=== PATIENT | female | born 1955 | race Caucasian/White ===

== ENCOUNTER 2016-10-26 05:28 | Emergency (ER) | payer OTHER ==
[2016-10-26 06:23] LABS: PTT 39.4 SEC (22.9-36.1); Prothrombin Time 16.1 SEC (12.0-14.7)
[2016-10-26 06:28] LABS: Mean Platelet Volume 7.5 fL (7.4-10.4); Red Blood Cell (RBC) Count 3.21 mill/uL (4.20-5.40); White Blood Cell (WBC) Count 3.6 thou/uL (4.8-10.8)
[2016-10-26 06:32] LABS: ALT (SGPT) 48 U/L (0-55); AST (SGOT) 78 U/L (5-34); Alkaline Phosphatase 138 U/L (40-150); Anion Gap 9 mmol/L (10-20); BUN (Urea Nitrogen) 15 mg/dL (9.8-20.1); Bilirubin, Total 1.1 mg/dL (0.2-1.2); Calc. Creatinine Clearance 0 mL/min (70-130); Calcium 8.6 mg/dL (7.8-10.44); Carbon Dioxide 23 mmol/L (23-31); Chloride 107 mmol/L (98-107); Estimated GFR-MDRD 56; Globulin 4.5 g/dL (2.4-3.5); Protein, Total 7.2 g/dL (5.8-8.1)
[2016-10-26 06:40] LABS: #Basophils 0.1 thou/uL (0.0-0.2); #Eosinphils 0.1 thou/uL (0.0-0.7); #Lymphocytes 0.9 thou/uL (1.20-3.40); #Monocytes 0.3 thou/uL (0.11-0.59); #Neutrophils 2.1 thou/uL (1.40-6.50); %Basophils 1.8 % (0.0-1.0); %Eosinophils 2.4 % (0.0-10.0); %Monocytes 9.6 % (0.0-10.0); Macrocytosis SLIGHT = 6-15 cells (100X) (0-5/hpf)
[2016-10-26] MEDS ORDERED: Iopamidol 370 76% 100 ML VIAL ONE (09:00)
[2016-10-26 09:20] LABS: Bilirubin Negative (Negative); Blood, Urine Moderate (Negative); Glucose, Urine (Dipstick) Negative (Negative); Ketone, Urine Negative (Negative); Nitrite Negative (Negative); Protein, Urine (Dipstick) Negative (Neg-Trace)
[2016-10-26 09:27] LABS: RBC/HPF 0-3 HPF (0-3)
[2016-10-26 09:28] LABS: Bacteria/HPF Rare-Few HPF (None Seen); Squamous Epithelial 0-3 HPF (0-3); WBC/HPF None Seen HPF (0-3)
--- NOTE | 2016-10-26 09:28 | ERRECORD ---
[facility] EMERGENCY RECORD HPI DIFFICULTY SWALLOWING (06:07 DHAM) CHIEF COMPLAINT: Patient presents for evaluation of difficulty swallowing, Patient presents for evaluation of hurts in neck and feels like something is obstructing her breathing. HISTORIAN: History provided by patient, Pt has had difficulty swallowing for the last [address] Levine from [place] in [place] 48 hours ago. She awoke feeling pain in her throat and like something was blocking her breathing. I have discussed the pt with Dr. Levine who did a laryngoscopy on the pt 48 hours ago. 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 He would like us to get a CT of the neck with IV contrast but with her hx of renal failure "a couple of times" I am concerned that her GFR will be too low. LOCATION: Symptoms are localized, most severe in the right side of throat, most severe to the up near thyroid cartilage. QUALITY: Pain is dull in nature, described as aching. SEVERITY: Current severity of pain rated as 8/10. TIME COURSE: Gradual onset of symptoms, 8, weeks ago, Symptoms are worsening, "My usual tramadol that I take for arthritis isn't helping this.". ASSOCIATED WITH: No associated chills, No associated cough, No associated drooling, Denies fever, Not associated with food bolus, No associated inability to open mouth, No associated inability to take oral fluids, No associated nasal discharge, No associated shortness of breath, No associated upper respiratory infection. EXACERBATED BY: Patient's condition exacerbated by deep breath or swallowing. ROS (06:20 DHAM) CONSTITUTIONAL: Historian denies chills, denies fever. EYES: Historian denies eye pain, denies eye redness, denies eye discharge. ENT: Historian reports dysphasia, reports dysphonia, denies otalgia, denies rhinorrhea, reports sore throat, denies snoring, reports stridor, reports voice changes. CARDIOVASCULAR: Historian denies chest pain, no radiation, Historian denies diaphoresis, denies dyspnea on exertion, denies palpitations. RESPIRATORY: Historian denies cough, denies shortness of breath, reports stridor. GI: Historian denies abdominal pain, denies constipation, denies diarrhea. h/o "liver failure and fluid retention". GENITOURINARY FEMALE: h/o renal "failure a couple of times". SKIN: Historian denies skin changes, denies skin lesions. &a-1R&a+25V*p+0X*m2089J*c202B*c15G*c2P*p-0X&a-25V&a+1R Name: Kallie Vogel : 1955 F61 MedRec: [id number] AcctNum: [id number] Prepared: Karlos Oct 28, 2016 20:02 by Interface Page 1 of 4 pMD [facility] EMERGENCY RECORD NEUROLOGIC: Historian denies focal weakness, denies mental status changes, denies paralysis, denies paresthesias. HEMO/LYMPHATIC: Historian denies abnormal blood clotting, denies easy bruising. PSYCHIATRIC: Historian reports alcohol abuse, reports drug abuse. "all that was a long time ago". PAST MEDICAL HISTORY (06:27 MVIL) MEDICAL HISTORY: Flu vaccine up to date, Tetanus immunization up to date, Pneumococcal vaccine up to date, Past medical history includes cardiac history, history of hypertension. FEMALE SURGICAL HISTORY: H/O THYROID REMOVAL; 3 C-SECTIONS. PSYCHIATRIC HISTORY: Notes: H/O DEPRESSION. SOCIAL HISTORY: Patient denies alcohol use, Patient denies drug use, Patient is a former tobacco user, smoked cigarettes, Patient quit smoking in the past year, Tobacco history notes: QUIT ON THURSDAY. H/ O 34 YRS. FAMILY HISTORY: No known family hisotry. KNOWN ALLERGIES NKA CURRENT MEDICATIONS traMADol: TABLET : Strength - 50 mg : ORAL Patient Dose: 1 tab(s) Oral 4 times a day. NEEDED. (05:47 CHOB) buPROPion HCl: TABLET, EXTENDED RELEASE : Strength - 150 mg : ORAL Patient Dose: 1 tab(s) Oral once a day. (05:48 CHOB) furosemide: TABLET : Strength - 20 mg : ORAL Patient Dose: 1 tab(s) Oral once a day. (05:49 CHOB) spironolactone: TABLET : Strength - 25 mg : ORAL Patient Dose: 1 tab(s) Oral once a day. (05:49 CHOB) lisinopril: TABLET : Strength - 2.5 mg : ORAL Patient Dose: 1 tab(s) Oral once a day. (05:50 CHOB) VITAL SIGNS VITAL SIGNS: BP: 115/85, Pulse: 98, Resp: 21, Temp: 97.7 (Oral), Pain: 8, O2 sat: 99 on Room Air, Time: 10/26/2016 05:37. (05:37 MVIL) BP: 135/83, Pulse: 95, Resp: 20, Temp: 98.3 (Oral), Pain: 8, O2 sat: 93 on Room Air, Time: 10/26/2016 07:11. (07:11 CTUR) BP: 119/86, Pulse: 92, Resp: 18, O2 sat: 95 on Room Air, Time: 10/26/2016 07:19. (07:19 CTUR) BP: 131/81, Pulse: 94, Resp: 18, Pain: Sleeping, O2 sat: 95 on Room Air, &a-1R&a+25V*p+0X*x2352K*c202B*c15G*c2P*p-0X&a-25V&a+1R Name: Kallie Vogel : 1955 F61 MedRec: [id number] AcctNum: [id number] Prepared: Karlos Oct 28, 2016 20:02 by Interface Page 2 of 4 pMD [facility] EMERGENCY RECORD Time: 10/26/2016 07:56. (07:56 CTUR) BP: 121/73, Pulse: 98, Resp: 20, Temp: 98.3 (Oral), Pain: 6, O2 sat: 97 on Room Air, Time: 10/26/2016 09:00. (09:00 CTUR) PHYSICAL EXAM (06:29 [facility]) CONSTITUTIONAL: Vital signs reviewed, Patient afebrile, Pulse normal, Blood pressure normal, Respiratory rate normal, Patient appears non toxic, Patient appears in pain, in moderate pain distress, Patient alert and oriented to person, place and time, Pt sleeping soundly on her left and right side without stridor. voice is raspy and this is unchanged over the last 2 months. also c/o right ear pain for the last 2 months. HEAD: Head exam included findings of head atraumatic, normocephalic. EYES: Eye exam included findings of eyelids normal to inspection, Pupils equally round and reactive to light, Extraocular muscles intact, Conjunctiva normal, Sclera normal, Eye exam included findings of anterior chamber clear. ENT: Ear exam included findings of, left external ear normal, right external ear normal, tympanic membrane normal on the left, tympanic membrane perforated on the right, hearing normal on the left, hearing normal on the right, Nose exam normal, Pharynx exam normal, Uvula exam normal, Tonsil exam normal, not enlarged, no exudates, Mouth exam normal, mucous membranes moist, no drooling, no lesions, no lacerations, no tongue elevation, Teeth with, dentures, swallows secretions normally. NECK: Neck exam included findings of normal range of motion, Trachea midline, Thyroid normal, no carotid bruits, no meningeal signs, no cervical adenopathy, Tenderness, Pain near right side of thyroid cartilage. no swelling, no ecchymosis. RESPIRATORY CHEST: Respiratory exam included findings of no respiratory distress, Breath sounds clear, No wheezing, No rales, No rhonchi, no tachypnea no stridor unless taking deep breaths during exam. voice sounds raspy. CARDIOVASCULAR: Cardiovascular exam included findings of heart rate regular rate and rhythm, Heart sounds normal. ABDOMEN FEMALE: Abdominal exam included findings of abdomen nontender, Bowel sounds normal, Liver normal, Spleen normal, no distension, no mass, no peritoneal signs, no rigidity, no guarding, no rebound. UPPER EXTREMITY: Upper extremity exam normal. LOWER EXTREMITY: Lower extremity exam normal. NEURO: Keith coma scale 15, Neuro exam findings include patient oriented to person, place and time, Speech normal, Gait normal, Memory normal, Cranial nerves intact, no focal motor deficits, no focal sensory deficits. SKIN: Skin exam included findings of skin warm, dry, and normal in color, no rash. LYMPHATIC: Lymphatic exam included findings of cervical nodes normal, Supraclavicular nodes normal. &a-1R&a+25V*p+0X*d0131J*c202B*c15G*c2P*p-0X&a-25V&a+1R Name: Kallie Vogel : 1955 F61 MedRec: [id number] AcctNum: [id number] Prepared: Karlos Oct 28, 2016 20:02 by Interface Page 3 of 4 pMD [facility] EMERGENCY RECORD PSYCHIATRIC: Psychiatric exam included findings of patient oriented to person place and time, Normal affect, Judgment normal, Insight normal, Remote memory normal, Recent memory normal, Concentration normal. DOCTOR NOTES TEXT: Pt is very unclear about her liver and kidney disease and says that she can't recall why they failed except "I got sick a couple of times." With her elevated coags amd meds that we usually see with liver failure or heart failure, I suspect she has chronic liver disease and may have had hepatorenal failure in the past. Her GFR is 56. will proceed with ct neck with contrast and will send a disc with the pt to take to her ENT as well. I would not use pain medicine in this situation. (06:41 DHAM) Pt's ct does indeed demonstrate swelling around the right larynx and hypopharynx. She has been sleeping and laying supine and certainly in no distress so I don't think airway protection is indicated at this point. She also has thrombocytopenia and elevated coags so I think she needs monitoring and likely ENT eval. I have discussed the pt with Dr. Orozco who accepts the pt in transfer via EMS. She has been here 3 hours without worsening or distress and she does appear stable for transfer. (08:41 DHAM) PROBLEM LIST No recorded problems DIAGNOSIS (08:55 DHAM) FINAL: PRIMARY: laryngeal edema. PRESCRIPTION No recorded prescriptions DISPOSITION PATIENT: Disposition Type: Transfer, Disposition: Transfer to [facility]. (08:55 DHAM) Patient left the department. (09:13 LGIB) Otto: LILY=RADHA Salinas, Patience ROWE=RADHA Nichols, Danielle DHALIWAL=MD Hopson Darren LGIB=RADHA Johansen, Faviola MVIL=RADHA Hummel, Luz &a-1R&a+25V*p+0X*m5604N*c202B*c15G*c2P*p-0X&a-25V&a+1R Name: Kallie Vogel : 1955 F61 MedRec: [id number] AcctNum: [id number] Prepared: Karlos Oct 28, 2016 20:02 by Interface Page 4 of 4 pMD MTDD
--- NOTE | 2016-10-26 09:39 | PICIS ---
[facility] EMERGENCY RECORD TRIAGE (ThuOct 26, 2016 05:39 MVIL) TRIAGE NOTES: C/O THROAT PAIN SINCE THURSDAY. SEEN BY ENT. TOLD HAS GROWTH ON HER VOCAL CORDS. (ThuOct 26, 2016 05:39 MVIL) PATIENT: NAME: Kallie Vogel, AGE: 61, GENDER: female, : Thu1955, TIME OF GREET: ThuOct 26, 2016 05:29, PREFERRED LANGUAGE: Vincentian, ETHNICITY: Not or , ECODE BILLING MAP: [facility], SSN: [id number], Zip Code: [address], KG WEIGHT: 62.60, HEIGHT/LENGTH: 165.10cm, BMI: 22.96, PHONE: , , , PERSON ID: [id number], PCP: DILCIA. (ThuOct 26, 2016 05:39 MVIL) PAYMENT: X Medicaid. (05:39) COMPLAINT: THROAT PAIN. (ThuOct 26, 2016 05:39 MVIL) ADMISSION: URGENCY: 4 Non Urgent, ADMISSION SOURCE: Home, TRANSPORT: CAR, BED: ER -02. (ThuOct 26, 2016 05:39 MVIL) ASSESSMENT: Assessment: C/O THROAT PAIN SINCE THURSDAY. DENIES ANY FEVER. SEEN BY ENT YESTERDAY. TOLD HAS GROWTH ON HER VOCAL GROWTH. STATES FEELS IF INTERFERING WITH HER BREATHING., Symptoms began 10/25/2016 05:40, Symptoms began yesterday. (05:41 MVIL) PAIN: Patient complains of pain described as, aching, on a scale 0-10 patient rates pain as 8, Location THROAT, Pain is constant, No aggravating factors, No relieving factors. (05:41 MVIL) IMMUNIZATIONS: Flu vaccine up to date, Tetanus immunization up to date, Pneumococcal vaccine up to date. (05:41 MVIL) SIRS SCORING: Heart Rate 55-109 (0), Temp range 96.8-101.1 (0), respiratory rate 12-24 (0), Mental Status altered: no (0). (05:41 MVIL) TRIAGE SCREENING: Patient denies suicidal ideation, Patient denies presence of domestic violence. (05:41 MVIL) PROVIDERS: TRIAGE NURSE: Luz Hummel RN. (Vernell Oct 26, 2016 05:39 MVIL) VITAL SIGNS: BP 115/85, Pulse 98, Resp 21, Temp 97.7, (Oral), Pain 8, O2 Sat 99, on Room Air, Time 10/26/2016 05:37. (05:37 MVIL) KNOWN ALLERGIES NKA CURRENT MEDICATIONS traMADol: TABLET : Strength - 50 mg : ORAL Patient Dose: 1 tab(s) Oral 4 times a day. NEEDED. (05:47 CHOB) buPROPion HCl: TABLET, EXTENDED RELEASE : Strength - 150 mg : ORAL Patient Dose: 1 tab(s) Oral once a day. (05:48 CHOB) furosemide: TABLET : Strength - 20 mg : ORAL Patient Dose: 1 tab(s) Oral once a day. (05:49 CHOB) spironolactone: &a-1R&a+25V*p+0X*g1002Q*c202B*c15G*c2P*p-0X&a-25V&a+1R Name: Kallie Vogel Mildred : 1955 F61 MedRec: [id number] AcctNum: [id number] Prepared: Karlos Oct 28, 2016 20:02 by Interface Page 1 of 10 pMD [facility] EMERGENCY RECORD TABLET : Strength - 25 mg : ORAL Patient Dose: 1 tab(s) Oral once a day. (05:49 CHOB) lisinopril: TABLET : Strength - 2.5 mg : ORAL Patient Dose: 1 tab(s) Oral once a day. (05:50 CHOB) VITAL SIGNS VITAL SIGNS: BP: 115/85, Pulse: 98, Resp: 21, Temp: 97.7 (Oral), Pain: 8, O2 sat: 99 on Room Air, Time: 10/26/2016 05:37. (05:37 MVIL) BP: 135/83, Pulse: 95, Resp: 20, Temp: 98.3 (Oral), Pain: 8, O2 sat: 93 on Room Air, Time: 10/26/2016 07:11. (07:11 CTUR) BP: 119/86, Pulse: 92, Resp: 18, O2 sat: 95 on Room Air, Time: 10/26/2016 07:19. (07:19 CTUR) BP: 131/81, Pulse: 94, Resp: 18, Pain: Sleeping, O2 sat: 95 on Room Air, Time: 10/26/2016 07:56. (07:56 CTUR) BP: 121/73, Pulse: 98, Resp: 20, Temp: 98.3 (Oral), Pain: 6, O2 sat: 97 on Room Air, Time: 10/26/2016 09:00. (09:00 CTUR) NURSING ASSESSMENT: ENT (05:47 MVIL) CONSTITUTIONAL: Patient arrives ambulatory, Gait steady, History obtained from patient, Patient appears comfortable, Patient cooperative, Patient alert, Skin warm, Skin dry, Skin normal in color, Mucous membranes pink, Mucous membranes moist, Patient is well-groomed, Patient complains of C/O THROAT PAIN, SEEN BY ENT THURSDAY. TOLD HAS GROWTH ON HER VOCAL CORDS. STATES HAS DIFFICULTY BREATHING DUE TO THE GROWTH BEING IN THE WAY. LUNGS SOUND WITH STRIDOR. O2 SAT 98% ON ROOM AIR. LAST TOOK TRAMADOL AT 10PM LAST NIGHT. PAIN: aching pain, to the throat, THROAT, Onset of pain 10/24/2016 05:49, constant, on a scale 0-10 patient rates pain as 8, Pain exacerbated by nothing, Nothing has been tried to alleviate the pain. ENT: Ear assessment findings include ear normal to inspection, Nasal assessment findings include nose normal to inspection, Mouth and throat assessment findings include mouth, REDNESS TO HER THROAT., no associated fever. RESPIRATORY/CHEST: Lungs auscultated, Respiratory assessment findings include respiratory effort easy, Respirations regular, Conversing normally, Neck and chest exam findings include trachea midline, Chest expansion equal, Chest movement symmetrical, no signs of distress, Notes: STRIDOR NOTED UPON AUSCULTATION. SAFETY: Side rails up, Cart/Stretcher in lowest position, Family at bedside, Call light within reach, Hospital ID band on. NURSING ASSESSMENT: FALL RISK (08:58 CTUR) FALL RISK: Fall risk assessment findings include: no history of falls (0), No bed rest greater than 2 days (0), No use of level of consciousness altering agents with mentation or cognitive changes (0), No change in blood pressure (0), Sensory deficits (1), No impaired mobility (0), No neurologic diagnosis (0), No elimination &a-1R&a+25V*p+0X*z2306M*c202B*c15G*c2P*p-0X&a-25V&a+1R Name: Kallie Vogel : 1955 F61 MedRec: [id number] AcctNum: [id number] Prepared: ThuOct 28, 2016 20:02 by Interface Page 2 of 10 pMD [facility] EMERGENCY RECORD problems (0), No confusion (0), Total score 1. NURSING ASSESSMENT: SKIN (08:58 CTUR) SKIN: Skin assessment findings include skin warm, Skin dry, Skin normal in color, Inspection findings include no abrasions, Inspection findings include no swelling. NURSING PROCEDURE: BEDSIDE SIRS TESTING (08:58 CTUR) SCORES: Heart Rate 55-109 (0), Temp range 96.8-101.1 (0), respiratory rate 12-24 (0), Latest WBC 3-14.9 (0), Mental Status altered: no (0). NURSING PROCEDURE: IV (06:46 CHOB) PATIENT IDENITIFIER: Patient actively involved in identification process, Patient's identity verified by patient stating name, Patient's identity verified by patient stating date. IV SITE 1: IV therapy indicated for medication administration, IV therapy indicated for CT SCAN, IV established, to the left forearm, using a 20 gauge catheter, in one attempt, IV site prepped with CHLORAPREP, Saline lock established, Flushed with normal saline (mls): 10. FOLLOW-UP SITE 1: After procedure, sterile transparent dressing applied, After procedure, IV line connections checked and properly labeled. SAFETY: Side rails up, Cart/Stretcher in lowest position, Family at bedside, Call light within reach, Hospital ID band on. NURSING PROCEDURE: NURSE NOTES (07:09 CTUR) NURSES NOTES: Notes: Patient in bed at this time, back from radiology, warm blanket applied, monitors on and reading. NURSING PROCEDURE: TRANSFER (09:12 CTUR) TRANSFER: Reason for transfer, ENT consult, monitoring coags, Diagnosis: Laryngeal edema, Accepting institution: [facility], Accepting physician: Ernesto, Referring physician: Mark Anthony, Transported by urgent ambulance, accompanied by emergency medical services personnel, Report called to receiving facility, RADHA Ardon, Provided opportunity to answer questions, Summary of Care printed, Copy of patient record prepared for receiving facility, Copy of diagnostic studies, Medication reconciliation form prepared and sent to receiving facility, Patient consent for transfer signed, Patient given appropriate sedation for safe transport. BELONGINGS: Belongings and valuables with patient upon arrival to the Emergency Department include:, Belongings and valuables with patient at time of admission include:, Belongings remain with patient, Valuables remain with patient. EQUIPMENT WITH PATIENT: [place] lock intact and patent at time of transfer. SAFETY: Side rails up, Cart/Stretcher in lowest position, Call light within reach, Hospital ID band on. &a-1R&a+25V*p+0X*c0183H*c202B*c15G*c2P*p-0X&a-25V&a+1R Name: Kallie Vogel : 1955 F61 MedRec: [id number] AcctNum: [id number] Prepared: Karlos Oct 28, 2016 20:02 by Interface Page 3 of 10 pMD [facility] EMERGENCY RECORD NURSING PROCEDURE: URINE COLLECTION (08:59 CTUR) PATIENT IDENTIFIER: Patient actively involved in identification process, Patient's identity verified by patient stating name, Patient's identity verified by patient stating date, Patient's identity verified by hospital ID bracelet. URINE COLLECTION FEMALE: Urine collected by void, output amount (mL) 100, urine yellow in color, and cloudy, Specimen labeled in the presence of the patient and sent to lab, Specimen obtained for culture labeled in the presence of the patient and sent to lab. SAFETY: Side rails up, Cart/Stretcher in lowest position, Family at bedside, Call light within reach, Hospital ID band on. ORDER DETAILS Order Name: CBC with Differential, Status: Active, Time: 05:57 10/26/2016, User: ISRA, - Ordered for: MD Hopson Darren, - Entered by: MD Hopson Darren - Sun Oct 26, 2016 05:57, - Quantity: 1, Order Name: Comprehensive Metabolic Panel, Status: Active, Time: 05:57 10/26/2016, User: ISRA, - Ordered for: MD Hopson Darren, - Entered by: MD Hopson Darren - Sun Oct 26, 2016 05:57, - Quantity: 1, Order Name: CT Neck Soft Tissue W WO Con, Status: Canceled, Time: 06:43 10/26/2016, User: System, - Ordered for: MD Hopson Darren, - Entered by: MD Hopson Darren Vernell Oct 26, 2016 06:38, - Quantity: 1, Order Name: Culture, Urine, Status: Active, Time: 09:07 10/26/2016, User: SOLEDAD, - Ordered for: MD Hopson Darren, - Entered by: RADHA Nichols, Danielle Vernell Oct 26, 2016 09:07, - Quantity: 1, Order Name: Protime with INR, Status: Active, Time: 05:57 10/26/2016, User: ISRA, - Ordered for: MD Hopson Darren, - Entered by: MD Hopson Darren Vernell Oct 26, 2016 05:57, - Quantity: 1, Order Name: PTT, Status: Active, Time: 05:57 10/26/2016, User: ISRA, - Ordered for: MD Hopson Darren, - Entered by: MD Hopson Darren Vernell Oct 26, 2016 05:57, - Quantity: 1, Order Name: SALINE LOCK, Status: Done, Time: 06:45 10/26/2016, User: CHOB, - Ordered for: MD Hopson Darren, - Entered by: MD Hopson Darren Vernell Oct 26, 2016 06:37, - Quantity: 1, &a-1R&a+25V*p+0X*q5864Q*c202B*c15G*c2P*p-0X&a-25V&a+1R Name: Kallie Vogel : 1955 F61 MedRec: [id number] AcctNum: [id number] Prepared: Karlos Oct 28, 2016 20:02 by Interface Page 4 of 10 D [facility] EMERGENCY RECORD Order Name: Urinalysis with Microscopic, Status: Active, Time: 09:07 10/26/2016, User: SOLEDAD, - Ordered for: MD Hopson Darren, - Entered by: RADHA Nichols, Danielle Vernell Oct 26, 2016 09:07, - Quantity: 1. HPI DIFFICULTY SWALLOWING (06:07 DHAM) CHIEF COMPLAINT: Patient presents for evaluation of difficulty swallowing, Patient presents for evaluation of hurts in neck and feels like something is obstructing her breathing. HISTORIAN: History provided by patient, Pt has had difficulty swallowing for the last [address] Levine from [place] in [place] 48 hours ago. She awoke feeling pain in her throat and like something was blocking her breathing. I have discussed the pt with Dr. Levine who did a laryngoscopy on the pt 48 hours ago. 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 He would like us to get a CT of the neck with IV contrast but with her hx of renal failure "a couple of times" I am concerned that her GFR will be too low. LOCATION: Symptoms are localized, most severe in the right side of throat, most severe to the up near thyroid cartilage. QUALITY: Pain is dull in nature, described as aching. SEVERITY: Current severity of pain rated as 8/10. TIME COURSE: Gradual onset of symptoms, 8, weeks ago, Symptoms are worsening, "My usual tramadol that I take for arthritis isn't helping this.". ASSOCIATED WITH: No associated chills, No associated cough, No associated drooling, Denies fever, Not associated with food bolus, No associated inability to open mouth, No associated inability to take oral fluids, No associated nasal discharge, No associated shortness of breath, No associated upper respiratory infection. EXACERBATED BY: Patient's condition exacerbated by deep breath or swallowing. ROS (06:20 DHAM) CONSTITUTIONAL: Historian denies chills, denies fever. EYES: Historian denies eye pain, denies eye redness, denies eye discharge. ENT: Historian reports dysphasia, reports dysphonia, denies otalgia, denies rhinorrhea, reports sore throat, denies snoring, reports stridor, reports voice changes. CARDIOVASCULAR: Historian denies chest pain, no radiation, Historian denies diaphoresis, denies dyspnea on exertion, denies palpitations. RESPIRATORY: Historian denies cough, denies shortness of breath, &a-1R&a+25V*p+0X*y9459A*c202B*c15G*c2P*p-0X&a-25V&a+1R Name: Kallie Vogel : 1955 F61 MedRec: [id number] AcctNum: [id number] Prepared: Karlos Oct 28, 2016 20:02 by Interface Page 5 of 10 pMD [facility] EMERGENCY RECORD reports stridor. GI: Historian denies abdominal pain, denies constipation, denies diarrhea. h/o "liver failure and fluid retention". GENITOURINARY FEMALE: h/o renal "failure a couple of times". SKIN: Historian denies skin changes, denies skin lesions. NEUROLOGIC: Historian denies focal weakness, denies mental status changes, denies paralysis, denies paresthesias. HEMO/LYMPHATIC: Historian denies abnormal blood clotting, denies easy bruising. PSYCHIATRIC: Historian reports alcohol abuse, reports drug abuse. "all that was a long time ago". PAST MEDICAL HISTORY (06:27 [facility]) MEDICAL HISTORY: Flu vaccine up to date, Tetanus immunization up to date, Pneumococcal vaccine up to date, Past medical history includes cardiac history, history of hypertension. FEMALE SURGICAL HISTORY: H/O THYROID REMOVAL; 3 C-SECTIONS. PSYCHIATRIC HISTORY: Notes: H/O DEPRESSION. SOCIAL HISTORY: Patient denies alcohol use, Patient denies drug use, Patient is a former tobacco user, smoked cigarettes, Patient quit smoking in the past year, Tobacco history notes: QUIT ON THURSDAY. H/ O 34 YRS. FAMILY HISTORY: No known family hisotry. PHYSICAL EXAM (06:29 [facility]) CONSTITUTIONAL: Vital signs reviewed, Patient afebrile, Pulse normal, Blood pressure normal, Respiratory rate normal, Patient appears non toxic, Patient appears in pain, in moderate pain distress, Patient alert and oriented to person, place and time, Pt sleeping soundly on her left and right side without stridor. voice is raspy and this is unchanged over the last 2 months. also c/o right ear pain for the last 2 months. HEAD: Head exam included findings of head atraumatic, normocephalic. EYES: Eye exam included findings of eyelids normal to inspection, Pupils equally round and reactive to light, Extraocular muscles intact, Conjunctiva normal, Sclera normal, Eye exam included findings of anterior chamber clear. ENT: Ear exam included findings of, left external ear normal, right external ear normal, tympanic membrane normal on the left, tympanic membrane perforated on the right, hearing normal on the left, hearing normal on the right, Nose exam normal, Pharynx exam normal, Uvula exam normal, Tonsil exam normal, not enlarged, no exudates, Mouth exam normal, mucous membranes moist, no drooling, no lesions, no lacerations, no tongue elevation, Teeth with, dentures, swallows secretions normally. NECK: Neck exam included findings of normal range of motion, &a-1R&a+25V*p+0X*e2022P*c202B*c15G*c2P*p-0X&a-25V&a+1R Name: Kallie Vogel : 1955 F61 MedRec: [id number] AcctNum: [id number] Prepared: Karlos Oct 28, 2016 20:02 by Interface Page 6 of 10 pMD [facility] EMERGENCY RECORD Trachea midline, Thyroid normal, no carotid bruits, no meningeal signs, no cervical adenopathy, Tenderness, Pain near right side of thyroid cartilage. no swelling, no ecchymosis. RESPIRATORY CHEST: Respiratory exam included findings of no respiratory distress, Breath sounds clear, No wheezing, No rales, No rhonchi, no tachypnea no stridor unless taking deep breaths during exam. voice sounds raspy. CARDIOVASCULAR: Cardiovascular exam included findings of heart rate regular rate and rhythm, Heart sounds normal. ABDOMEN FEMALE: Abdominal exam included findings of abdomen nontender, Bowel sounds normal, Liver normal, Spleen normal, no distension, no mass, no peritoneal signs, no rigidity, no guarding, no rebound. UPPER EXTREMITY: Upper extremity exam normal. LOWER EXTREMITY: Lower extremity exam normal. NEURO: Keith coma scale 15, Neuro exam findings include patient oriented to person, place and time, Speech normal, Gait normal, Memory normal, Cranial nerves intact, no focal motor deficits, no focal sensory deficits. SKIN: Skin exam included findings of skin warm, dry, and normal in color, no rash. LYMPHATIC: Lymphatic exam included findings of cervical nodes normal, Supraclavicular nodes normal. PSYCHIATRIC: Psychiatric exam included findings of patient oriented to person place and time, Normal affect, Judgment normal, Insight normal, Remote memory normal, Recent memory normal, Concentration normal. EVENTS TRANSFER: Triage to Emergency Emergency Room -02. (Vernell Oct 26, 2016 05:39 MVIL) Removed from Emergency Emergency Room -02. (09:13 LGIB) O2SAT INTERPRETATION (05:46 DHAM) O2SAT: Single pulse oximetry, Oxygen saturation 99%, on room air, Oxygen saturation interpretation: Normal, No intervention required. DOCTOR NOTES TEXT: Pt is very unclear about her liver and kidney disease and says that she can't recall why they failed except "I got sick a couple of times." With her elevated coags amd meds that we usually see with liver failure or heart failure, I suspect she has chronic liver disease and may have had hepatorenal failure in the past. Her GFR is 56. will proceed with ct neck with contrast and will send a disc with the pt to take to her ENT as well. I would not use pain medicine in this situation. (06:41 DHAM) Pt's ct does indeed demonstrate swelling around the right larynx and hypopharynx. She has been sleeping and laying supine and certainly in no distress so I don't think airway protection is indicated at this point. She also has thrombocytopenia and elevated &a-1R&a+25V*p+0X*v3044V*c202B*c15G*c2P*p-0X&a-25V&a+1R Name: Kallie Vogel : 1955 F61 MedRec: [id number] AcctNum: [id number] Prepared: Karlos Oct 28, 2016 20:02 by Interface Page 7 of 10 pMD [facility] EMERGENCY RECORD coags so I think she needs monitoring and likely ENT eval. I have discussed the pt with Dr. Orozco who accepts the pt in transfer via EMS. She has been here 3 hours without worsening or distress and she does appear stable for transfer. (08:41 DHAM) PROBLEM LIST No recorded problems DIAGNOSIS (08:55 DHAM) FINAL: PRIMARY: laryngeal edema. DISPOSITION PATIENT: Disposition Type: Transfer, Disposition: Transfer to [facility]. (08:55 DHAM) Patient left the department. (09:13 LGIB) PRESCRIPTION No recorded prescriptions IMAGING CT REPORT: Image captured from scanner. (08:52 LGIB) Page 2 added. Image captured from scanner. (08:52 LGIB) CONSENTS: Image captured from scanner. (08:53 LGIB) *MEMORANDUM OF TRANSFER: Image captured from scanner. (08:54 LGIB) PHYSICIAN CERTIFICATION STATEMENT: Image captured from scanner. (08:54 LGIB) *SUPPLY CHARGE SHEET: Image captured from scanner. (09:14 LGIB) ADMIN (ThuOct 28, 2016 19:52 DHA) DIGITAL SIGNATURE: MD Hopson Darren. RESULTS LABORATORY: CBC with Differential Collection DT: Vernell Oct 26, 2016 06:13, *White Blood Cell (WBC) Count 3.6 - L thou/uL, Range (4.8-10.8), *Red Blood Cell (RBC) Count 3.21 - L mill/uL, Range (4.20-5.40), *Hemoglobin 11.2 - L g/dL, Range (12.0-16.0), *Hematocrit 34.0 - L %, Range (36.0-47.0), *Mean Corpuscular Volume 106.0 - H fl, Range (81.0-99.0), *Mean Corpuscular Hemoglobin 35.0 - H pg, Range (27.0-31.0), Mean Corpuscular HGB CONC 33.0 g/dL, Range (32.0-36.0), RBC Distribution Width 13.1 %, Range (11.5-14.5), *Platelet Count 92 - L thou/uL, Range (130-400), Mean Platelet Volume 7.5 fL, Range (7.4-10.4). (06:28 DHAM) PTT Collection DT: Vernell Oct 26, 2016 06:13, See comment below , Anticoagulant? NONE Medical Necessity SUSPECT COAGULOPATHY , &a-1R&a+25V*p+0X*f4756Y*c202B*c15G*c2P*p-0X&a-25V&a+1R Name: Kallie Vogel : 1955 F61 MedRec: [id number] AcctNum: [id number] Prepared: ThuOct 28, 2016 20:02 by Interface Page 8 of 10 pMD [facility] EMERGENCY RECORD *PTT 39.4 - H SEC, Range (22.9-36.1). (: [facility]) Protime with INR Collection DT: Vernell Oct 26, 2016 06:13, See comment below , Anticoagulant? NONE Medical Necessity SUSPECT COAGULOPATHY , *Prothrombin Time 16.1 - H SEC, Range (12.0-14.7), INR-International Normal Ratio 1.3 , ATTENTION: READ CAREFULLY , The, recommended therapeutic ranges for oral anticoagulant treatments are: , , Low Intensity: 1.5 - 2.0 Moderate Intensity: 2.0, - 3.0 High Intensity (1): 2.5 - 3.5 High, Intensity (2): 3.0 - 4.0 CRITICAL: >, 4.0 . (: [facility]) Comprehensive Metabolic Panel Collection DT: Vernell Oct 26, 2016 06:13, *Sodium 135 - L mmol/L, Range (136-145), Potassium 4.1 mmol/L, Range (3.5-5.1), Chloride 107 mmol/L, Range (98-107), Carbon Dioxide 23 mmol/L, Range (23-31), *Anion Gap 9 - L mmol/L, Range (10-20), BUN (Urea Nitrogen) 15 mg/dL, Range (9.8-20.1), Creatinine 1.00 mg/dL, Range (0.6-1.1), Estimated GFR-MDRD 56 , Reference Range for Estimated GFR: Greater than 90, mL/min/1.73 m2 NOTE: The MDRD equation has not been validated for use, with the elderly (over 70 years of age), women, patients with, serious comorbid condition or persons with extremes of body size, muscle, mass, or nutritional status. , Glucose 108 mg/dL, Range (80-115), Calcium 8.6 mg/dL, Range (7.8-10.44), Bilirubin, Total 1.1 mg/dL, Range (0.2-1.2), Protein, Total 7.2 g/dL, Range (5.8-8.1), NOTE: Plasma values are generally 0.3 to 0.5 g/dL higher than serum values, due to the presence of fibrinogen. , *Albumin 2.7 - L g/dL, Range (3.4-4.8), *Globulin 4.5 - H g/dL, Range (2.4-3.5), *Alb/Glob Ratio 0.6 - L g/dL, Range (1.2-2.2), Alkaline Phosphatase 138 U/L, Range (40-150), *AST (SGOT) 78 - H U/L, Range (5-34), ALT (SGPT) 48 U/L, Range (0-55). (06:36 [facility]) &a-1R&a+25V*p+0X*d7459B*c202B*c15G*c2P*p-0X&a-25V&a+1R Name: Kallie Vogel : 1955 F61 MedRec: [id number] AcctNum: [id number] Prepared: Karlos Oct 28, 2016 20:02 by Interface Page 9 of 10 pMD [facility] EMERGENCY RECORD CBC with Differential Collection DT: Vernell Oct 26, 2016 06:13, *White Blood Cell (WBC) Count 3.6 - L thou/uL, Range (4.8-10.8), *Red Blood Cell (RBC) Count 3.21 - L mill/uL, Range (4.20-5.40), *Hemoglobin 11.2 - L g/dL, Range (12.0-16.0), *Hematocrit 34.0 - L %, Range (36.0-47.0), *Mean Corpuscular Volume 106.0 - H fl, Range (81.0-99.0), *Mean Corpuscular Hemoglobin 35.0 - H pg, Range (27.0-31.0), Mean Corpuscular HGB CONC 33.0 g/dL, Range (32.0-36.0), RBC Distribution Width 13.1 %, Range (11.5-14.5), *Platelet Count 92 - L thou/uL, Range (130-400), Mean Platelet Volume 7.5 fL, Range (7.4-10.4), %Neutrophils 59.8 %, Range (42.0-75.0), %Lymphocytes 26.3 %, Range (21.0-51.0), %Monocytes 9.6 %, Range (0.0-10.0), %Eosinophils 2.4 %, Range (0.0-10.0), *%Basophils 1.8 - H %, Range (0.0-1.0), #Neutrophils 2.1 thou/uL, Range (1.40-6.50), *#Lymphocytes 0.9 - L thou/uL, Range (1.20-3.40), #Monocytes 0.3 thou/uL, Range (0.11-0.59), #Eosinphils 0.1 thou/uL, Range (0.0-0.7), #Basophils 0.1 thou/uL, Range (0.0-0.2), Macrocytosis SLIGHT = 6-15 cells (100X), Range (0-5/hpf), *PLT Morphology Comment Appears Decreased - , * L . (08:40 [facility]) Otto: CHOB=RADHA [place], Patience CTBARRY=RADHA Nichols, Danielle DHAM=MD Mark Anthony, Kenrick LGIB=RADHA Johansen, Faviola MVIL=RADHA Hummel, Luz &a-1R&a+25V*p+0X*j6766C*c202B*c15G*c2P*p-0X&a-25V&a+1R Name: Kallie Vogel Mildred : 1955 F61 MedRec: [id number] AcctNum: [id number] Prepared: ThuOct 28, 2016 20:02 by Interface Page 10 of 10 pMD MTDD
--- NOTE | 2016-10-26 15:51 | CT ---
PRELIMINARY REPORT/[facility]/EMERGENCY AFTER HOURS PROCEDURE: \\H\\EXAM: \\N\\CT Neck With Intravenous Contrast (20513). 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 . . Pt with right si ded vocal cord mass per ent, pt has had difficulty swallowing for the last [address] Vitaly sanchez from [place] in [place] 48 hours ago. She awoke feeling pain in her throat and like something was blocking her breathing. I have discussed the pt with dr. Levine who did a laryngoscopy on the pt 48 hours ago. 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 This cord is fixed and likely chronically after her thyroidectomy. " she is scheduled for vocal cord bx in 3 days. ; Additi onal info: Marker placed over area that pt C/O swelling and pain.Examination order is timed 10/26/2016 6:57 AM. \\H\\ TECHNIQUE: \\N\\Axial computed tomography images of the neck with intravenous contrast. Coronal and sagittal reformatted images were created and reviewed. \\H\\ COMPARISON: \\N\\No relevant prior studies available. \\H\\FINDINGS: NASOPHARYNX\\N\\: Unremarkable as visualized. \\H\\OROPHARYNX\\N\\: Unremarkable as visualized. No significant tonsillar enlargement. No peritonsillar abscess. \\H\\HYPOPHARYNX\\N\\: Unremarkable as visualized. \\H\\LARYNX\\N\\: Unremarkable as visualized. Normal epiglottis. \\H\\TRACHEA\\N\\: Unremarkable as visualized. \\H\\RETROPHARYNGEAL SPACE\\N\\: Unremarkable as visualized. \\H\\SUBMANDIBULAR/PAROTID GLANDS\\N\\: Unremarkable as visualized. Glands are normal in size. \\H\\THYROID\\N\\: There is left lobe thyroidectomy. Right lobe appears nonenlarged without nodule ident ified. \\H\\BONES\\N\\: Degenerative changes are present in the spine. No acute fracture. \\H\\SOFT TISSUES\\N\\: There is significant thickening with low density edema involving the right aryep iglottic fold with edema in the adjacent perform sinus. There is mild edema of the right side of the epiglottis with remaining epiglottis are unremarkable. There is slight mucosal enhancement of the margin of the right piriform sinus. This edema appears to extend inferiorly to the superior aspect o f the post cricoid hypopharynx. Edema extends to the adjacent posterior paraglottic fat. Some of the l oss of fat planes of the posterior false vocal cord shows soft tissue density and therefore correlat e with laryngoscopy and future biopsy results. The right true vocal cord is paramedian compatible wi th paralysis seen on laryngoscopy. There is associated effacement of the right side of the laryngeal ve ntricle. \\H\\VASCULATURE\\N\\: No acute findings. \\H\\LYMPH NODES\\N\\: Unremarkable as visualized. No lymphadenopathy. \\H\\DENTAL\\N\\: Patient is edentulous. \\H\\LUNG APICES\\N\\: There are 2 small right upper lobe nodules largest 3 mm. \\H\\ IMPRESSION: \\N\\1. Edema of the right supraglottic larynx and hypopharynx. Some of the loss of fat planes in the posterior false vocal cord appears to have soft tissue density and therefore correlate with laryngos copy and biopsy results. 2. Findings consistent with right vocal cord paralysis. 3. Left lobe thyroidectomy. 4. Small right upper lobe pulmonary nodules. Thank you for allowing us to participate in the care of your patient. Dictated and Authenticated by: Meg Schulte MD 10/26/2016 8:20 AM Central Time ([place] \\T\\ Kenny) FINAL REPORT CT OF THE NECK SOFT TISSUES WITH CONTRAST: Date: 10-26-16 Axial slices were acquired after giving IV contrast. Coronal and sagittal reconstructions were then done. There is asymmetry of the vocal folds on the right side consistent with the history of right vocal c ord paralysis. There is a general fullness in the area and slightly low density. There is also prieto e low density swelling in the right aryepiglottic fold of the epiglottis. The epiglottis itself rajwinder ears normal. The findings are thought to be territory representative of some combination of swelling and/or m ass. I understand the patient is scheduled for a vocal cord biopsy soon. I do not see any significant adenopathy in the deep cervical chains. There were no other abnormalit ies of concern. IMPRESSION: 1. Swelling/asymmetry of the right vocal fold and nearby folds. No evidence of significant adenopa thy nearby. 2. Report in agreement with preliminary reading by MATI. POS: HOME
== END 2016-10-26 09:10 | disposition short-term general hospital (02) ==
LOC: BURERS 05:28
DX: J38.4 Edema of larynx (principal); I10 Essential (primary) hypertension; F32.9 Major depressive disorder, single episode, unspecified; Z87.891 Personal history of nicotine dependence
CPT/HCPCS: 36415; 70491; 80053; 81001; 85025; 85610; 85730; 87086